=== PATIENT | female | born 1955 | race Hispanic/Latino ===

== ENCOUNTER 2017-08-01 09:49 | Emergency (ER) | payer OTHER ==
[2017-08-01] MEDS ORDERED: Ondansetron ODT 4 MG TAB ONE (10:08)
== END 2017-08-01 10:23 | disposition home or self-care (01) ==
LOC: BURERS 09:49
DX: A08.4 Viral intestinal infection, unspecified (principal); I10 Essential (primary) hypertension
CPT/HCPCS: 99283; Q0162

== ENCOUNTER 2019-04-04 16:49 | Emergency (ER) | payer MEDICARE, OTHER ==
[2019-04-04 17:18] LABS: #Eosinphils 0.1 thou/uL (0.0-0.7); #Lymphocytes 2.2 thou/uL (1.20-3.40); #Monocytes 0.3 thou/uL (0.11-0.59); #Neutrophils 3.6 thou/uL (1.40-6.50); %Basophils 0.7 % (0.0-1.0); %Eosinophils 1.4 % (0.0-10.0); %Lymphocytes 35.7 % (21.0-51.0); %Monocytes 4.4 % (0.0-10.0); %Neutrophils 57.8 % (42.0-75.0); Hemoglobin 13.8 g/dL (12.0-16.0); Mean Corpuscular Hemoglobin 29.2 pg (27.0-31.0); Mean Corpuscular Volume 88.5 fL (78.0-98.0); Mean Platelet Volume 8.1 fL (7.4-10.4); Platelet Count 209 thou/uL (130-400); RBC Distribution Width 10.9 % (11.5-14.5); Red Blood Cell (RBC) Count 4.73 mill/uL (4.20-5.40); White Blood Cell (WBC) Count 6.2 thou/uL (4.8-10.8)
[2019-04-04 17:30] LABS: ALT (SGPT) 23 U/L (8-55); AST (SGOT) 24 U/L (5-34); Albumin 4.5 g/dL (3.4-4.8); Alkaline Phosphatase 133 U/L (40-150); Anion Gap 17 mmol/L (10-20); BUN (Urea Nitrogen) 13 mg/dL (9.8-20.1); Bilirubin, Total 0.3 mg/dL (0.2-1.2); Calc. Creatinine Clearance 0 mL/min (70-130); Calcium 9.7 mg/dL (7.8-10.44); Carbon Dioxide 19 mmol/L (23-31); Chloride 106 mmol/L (98-107); Estimated GFR-MDRD 79; Glucose 119 mg/dL (80-115); Potassium 3.3 mmol/L (3.5-5.1); Protein, Total 7.5 g/dL (6.0-8.3); Sodium 139 mmol/L (136-145)
[2019-04-04] MEDS ORDERED: Potassium Chloride 20 MEQ TAB ONE (17:42)
--- NOTE | 2019-04-04 20:01 | RAD ---
PORTABLE CHEST: 04/04/19 An AP portable film at 1710 is presented with no prior films available for comparison. The heart is borderline in size, perhaps minimally enlarged. There is no vascular congestion, edema, or pleural effusion. The lungs are clear. The trachea is midline. IMPRESSION: Borderline heart size, otherwise no acute findings POS: HOME
== END 2019-04-04 17:57 | disposition home or self-care (01) ==
LOC: BURERS 16:49
DX: I10 Essential (primary) hypertension (principal); E78.5 Hyperlipidemia, unspecified; Z79.899 Other long term (current) drug therapy
CPT/HCPCS: 71045; 80053; 84484; 85025; 93005

== ENCOUNTER 2020-08-04 23:27 | Emergency (ER) | payer MEDICARE, OTHER ==
[2020-08-04] MEDS ORDERED: Acetaminophen 500 MG TAB ONE (23:44)
[2020-08-05] MEDS ORDERED: Dexamethasone 4 mg/ml Vial ONE (00:29)
--- NOTE | 2020-08-05 07:22 | RAD ---
PORTABLE CHEST: Date: 08/04/2020 An AP portable film at 2352 hours shows a normal sized heart and clear lungs. No lobar infiltrate or effusion seen. The only questionable area was in the periphery of the right upper lobe and this is at the junction of several overlapping bones, which I believe is most likely responsible for the findin g. One other equivocal area was in the left mid lung. Otherwise, the chest is unremarkable. IMPRESSION: Two equivocal patchy areas, one in the periphery of the right upper lobe and one in the left mid lung region that I cannot ensure are actual infiltrates versus confluence of markings. A follow-up film m ay be advised. POS: HOME
[2020-08-05 17:56] LABS: SARS-CoV-2 MS2 Positive; SARS-CoV-2 N Gene Positive; SARS-CoV-2 S Gene Positive; SARS-CoV-2 by NAA DETECTED (NotDetected); SARS-CoV-2 orf1ab Positive
== END 2020-08-05 00:43 | disposition home or self-care (01) ==
LOC: BURERS 23:27
DX: U07.1 COVID-19 (principal); E78.5 Hyperlipidemia, unspecified; E78.00 Pure hypercholesterolemia, unspecified; I10 Essential (primary) hypertension
CPT/HCPCS: 71045; 87804 ×2; 99284; U0003; 87635; J1100

== ENCOUNTER 2020-08-09 07:30 | Emergency (ER) | payer MEDICARE, OTHER ==
[2020-08-09 08:33] LABS: #Lymphocytes 1.1 thou/uL (1.20-3.40); #Monocytes 0.3 thou/uL (0.11-0.59); #Neutrophils 8.9 thou/uL (1.40-6.50); %Basophils 0.4 % (0.0-1.0); %Lymphocytes 10.9 % (21.0-51.0); %Monocytes 3.3 % (0.0-10.0); %Neutrophils 85.4 % (42.0-75.0); Hemoglobin 14.3 g/dL (12.0-16.0); Mean Corpuscular HGB CONC 31.9 g/dL (32.0-36.0); Mean Corpuscular Hemoglobin 28.3 pg (27.0-31.0); Mean Corpuscular Volume 88.6 fL (78.0-98.0); Mean Platelet Volume 7.8 fL (7.4-10.4); Platelet Count 231 thou/uL (130-400); RBC Distribution Width 11.7 % (11.5-14.5); Red Blood Cell (RBC) Count 5.06 mill/uL (4.20-5.40); White Blood Cell (WBC) Count 10.4 thou/uL (4.8-10.8)
[2020-08-09] MEDS ORDERED: Benzonatate 100 MG CAP ONE (08:41)
[2020-08-09 08:47] LABS: ALT (SGPT) 22 U/L (8-55); AST (SGOT) 28 U/L (5-34); Albumin 3.7 g/dL (3.4-4.8); Alkaline Phosphatase 96 U/L (40-110); Anion Gap 15 mmol/L (10-20); BUN (Urea Nitrogen) 15 mg/dL (9.8-20.1); Bilirubin, Total 0.4 mg/dL (0.2-1.2); Calc. Creatinine Clearance 0 mL/min (70-130); Calcium 8.7 mg/dL (7.8-10.44); Carbon Dioxide 23 mmol/L (23-31); Chloride 104 mmol/L (98-107); Estimated GFR-MDRD Greater than 90; Globulin 3.2 g/dL (2.4-3.5); Glucose 100 mg/dL (80-115); Potassium 3.2 mmol/L (3.5-5.1); Protein, Total 6.9 g/dL (6.0-8.3); Sodium 139 mmol/L (136-145)
[2020-08-09] MEDS ORDERED: Azithromycin 500 MG VIAL ONE (10:14)
[2020-08-09] MEDS ORDERED: cefTRIAXone\\ROCEPHIN 2 GM VIAL ONE (10:14)
[2020-08-09] MEDS ORDERED: Dexamethasone 4 mg/ml Vial ONE (10:15)
--- NOTE | 2020-08-09 17:00 | CT ---
CT OF THE CHEST WITHOUT CONTRAST: 08/09/[address] of the chest was done for evaluation of dyspnea. It was done without IV contrast by request . The major finding on this study is multiple patchy ground glass opacities scattered throughout all lo bes bilaterally. These findings are most suggestive of infection and should be COVID until proven ot herwise. There is no mediastinal mass or adenopathy. No coronary calcifications were seen. There are no effusions. Scans into the upper part of the abdomen showed no adrenal mass or other acute change. IMPRESSION: Extensive patchy bilateral ground glass infiltrates as described. Infection presumed, COVID most like ly given the current environment. Preliminary report called to Dr. Beck at 0842 on 08/09/20. POS: HOME
== END 2020-08-09 12:20 | disposition short-term general hospital (02) ==
LOC: BURERS 07:30
DX: U07.1 COVID-19 (principal); J12.89 Other viral pneumonia; E78.5 Hyperlipidemia, unspecified; E78.00 Pure hypercholesterolemia, unspecified; Z79.899 Other long term (current) drug therapy
CPT/HCPCS: 36415; 71250; 80053; 83605; 84484; 85025; 87040; 93005; 96365; 96375; J0456; J0696; J1100; J7620

== ENCOUNTER 2020-08-16 21:49 | Emergency (ER) | payer MEDICARE, OTHER | END 2020-08-16 22:15 | disposition home or self-care (01) | LOC: BURERS 21:49 | DX: R13.10 Dysphagia, unspecified (principal); T48.3X5A Adverse effect of antitussives, initial encounter; E78.5 Hyperlipidemia, unspecified; E78.00 Pure hypercholesterolemia, unspecified; Z79.899 Other long term (current) drug therapy | CPT/HCPCS: 99284 ==

== ENCOUNTER 2020-09-09 09:23 | Emergency (ER) | payer MEDICARE, OTHER ==
[2020-09-09] MEDS ORDERED: predniSONE 20 MG TAB ONE (10:06)
--- NOTE | 2020-09-09 10:21 | RAD ---
Chest AP view INDICATION: History of cough in a 65-year-old female COMPARISON: August 04, 2020 FINDINGS: Lungs: Very mild patchy groundglass peripheral airspace opacities are seen throughout both lungs, sl ightly more pronounced than on the prior exam. Cardiac silhouette: Mild cardiomegaly is stable. Pulmonary vasculature: Normal Pleural spaces: No pleural effusion or pneumothorax is demonstrated. Upper abdomen: No abnormality seen. Osseous structures: No acute osseous abnormality. Additional findings: None. IMPRESSION: 1. Findings suspicious for bilateral atypical pneumonia. Recommend correlation with Covid testing. 2. Stable mild cardiomegaly without evidence of cardiac decompensation.
[2020-09-09 10:40] LABS: Anion Gap 16 mmol/L (10-20); BUN (Urea Nitrogen) 12 mg/dL (9.8-20.1); Calc. Creatinine Clearance 0 mL/min (70-130); Carbon Dioxide 21 mmol/L (23-31); Chloride 107 mmol/L (98-107); Glucose 103 mg/dL (80-115); Potassium 3.8 mmol/L (3.5-5.1); Sodium 140 mmol/L (136-145)
[2020-09-10 01:06] LABS: SARS-CoV-2 MS2 Positive; SARS-CoV-2 N Gene Positive; SARS-CoV-2 S Gene Positive; SARS-CoV-2 by NAA DETECTED (NotDetected); SARS-CoV-2 orf1ab Positive
== END 2020-09-09 11:00 | disposition home or self-care (01) ==
LOC: BURERS 09:23
DX: U07.1 COVID-19 (principal); J12.89 Other viral pneumonia; R19.7 Diarrhea, unspecified; Z79.899 Other long term (current) drug therapy; E78.5 Hyperlipidemia, unspecified; E78.00 Pure hypercholesterolemia, unspecified
CPT/HCPCS: 71045; 80048; 87804 ×2; 99284; U0003; 36415; 87635; J7512

== ENCOUNTER 2020-09-11 07:23 | Emergency (ER) | payer MEDICARE, OTHER ==
[2020-09-11] MEDS ORDERED: hydrOXYzine 25 MG TAB ONE (08:05)
[2020-09-11] MEDS ORDERED: Famotidine 20 MG TAB ONE (08:05)
== END 2020-09-11 09:01 | disposition home or self-care (01) ==
LOC: BURERS 07:23
DX: U07.1 COVID-19 (principal); R09.89 Other specified symptoms and signs involving the circulatory and respiratory systems; F41.9 Anxiety disorder, unspecified; E78.00 Pure hypercholesterolemia, unspecified; E78.5 Hyperlipidemia, unspecified; Z79.899 Other long term (current) drug therapy
CPT/HCPCS: 99283

== ENCOUNTER 2020-09-24 19:30 | Emergency (ER) | payer MEDICARE, OTHER ==
[2020-09-24] MEDS ORDERED: predniSONE 20 MG TAB ONE (20:09)
== END 2020-09-24 20:20 | disposition home or self-care (01) ==
LOC: BURERS 19:30
DX: U07.1 COVID-19 (principal); F41.9 Anxiety disorder, unspecified; E78.5 Hyperlipidemia, unspecified; E78.00 Pure hypercholesterolemia, unspecified; Z79.899 Other long term (current) drug therapy
CPT/HCPCS: 99284; J7512

== ENCOUNTER → 2021-09-17 | Emergency (ER) | payer MEDICARE, OTHER | LOC: BURERS 10:27 | DX: J06.9 Acute upper respiratory infection, unspecified (principal); Z86.16 Personal history of COVID-19; E78.5 Hyperlipidemia, unspecified; E78.00 Pure hypercholesterolemia, unspecified | CPT/HCPCS: 87804; 99283 ==

== ENCOUNTER 2021-09-22 02:30 | Emergency (ER) | payer MEDICARE, OTHER | END 2021-09-22 03:30 | disposition home or self-care (01) | LOC: BURERS 02:30 | DX: J20.9 Acute bronchitis, unspecified (principal); E78.5 Hyperlipidemia, unspecified; E78.00 Pure hypercholesterolemia, unspecified; Z86.16 Personal history of COVID-19; Z79.52 Long term (current) use of systemic steroids; Z79.899 Other long term (current) drug therapy | CPT/HCPCS: 99283 ==

== ENCOUNTER 2021-11-18 12:27 | Emergency (ER) | payer MEDICARE, OTHER ==
[2021-11-18 13:34] LABS: Bilirubin Negative (Negative); Blood, Urine Negative (Negative); Clarity Clear (Clear); Glucose, Urine (Dipstick) Negative (Negative); Ketone, Urine Trace mg/dL (Negative); Leukocyte Negative (Negative); Nitrite Negative (Negative); Protein, Urine (Dipstick) Negative (Neg-Trace); Urobilinogen 0.2 mg/dL (Less than 2)
[2021-11-18 13:55] LABS: #Basophils 0.1 thou/uL (0.0-0.2); #Eosinphils 0.1 thou/uL (0.0-0.7); #Lymphocytes 1.9 thou/uL (1.20-3.40); #Monocytes 0.6 thou/uL (0.11-0.59); #Neutrophils 8.5 thou/uL (1.40-6.50); %Basophils 0.7 % (0.0-1.0); %Eosinophils 0.9 % (0.0-10.0); %Monocytes 5.7 % (0.0-10.0); %Neutrophils 75.6 % (42.0-75.0); Hemoglobin 13.3 g/dL (12.0-16.0); Mean Corpuscular HGB CONC 32.5 g/dL (32.0-36.0); Mean Corpuscular Hemoglobin 29.2 pg (27.0-31.0); Mean Corpuscular Volume 89.8 fL (78.0-98.0); Mean Platelet Volume 9.2 fL (7.4-10.4); Platelet Count 228 thou/uL (130-400); RBC Distribution Width 12.8 % (11.5-14.5); Red Blood Cell (RBC) Count 4.57 mill/uL (4.20-5.40); White Blood Cell (WBC) Count 11.2 thou/uL (4.8-10.8)
[2021-11-18 14:07] LABS: ALT (SGPT) 19 U/L (8-55); AST (SGOT) 19 U/L (5-34); Albumin 3.8 g/dL (3.4-4.8); Alkaline Phosphatase 120 U/L (40-110); Anion Gap 12 mmol/L (10-20); BUN (Urea Nitrogen) 26 mg/dL (9.8-20.1); Bilirubin, Total 0.3 mg/dL (0.2-1.2); Calc. Creatinine Clearance 0 mL/min (70-130); Calcium 8.8 mg/dL (7.8-10.44); Carbon Dioxide 24 mmol/L (23-31); Chloride 109 mmol/L (98-107); Globulin 2.8 g/dL (2.4-3.5); Glucose 93 mg/dL (80-115); Potassium 3.9 mmol/L (3.5-5.1); Protein, Total 6.6 g/dL (5.8-8.1); Sodium 141 mmol/L (136-145)
== END 2021-11-18 14:26 | disposition home or self-care (01) ==
LOC: BURERS 12:27
DX: B34.9 Viral infection, unspecified (principal); E78.5 Hyperlipidemia, unspecified; E78.00 Pure hypercholesterolemia, unspecified; K21.9 Gastro-esophageal reflux disease without esophagitis; Z86.16 Personal history of COVID-19
CPT/HCPCS: 36415; 80053; 81003; 84484; 85025; 99284

== ENCOUNTER 2022-01-08 03:00 | Emergency (ER) | payer MEDICARE, OTHER ==
[2022-01-08] MEDS ORDERED: Dexamethasone 10 MG/ML VIAL ONE (03:26)
[2022-01-08] MEDS ORDERED: Ibuprofen 200 MG TAB ONE (03:26)
[2022-01-08] MEDS ORDERED: Acetaminophen 325 MG TAB ONE (03:30)
== END 2022-01-08 03:40 | disposition home or self-care (01) ==
LOC: BURERS 03:00
DX: M54.42 Lumbago with sciatica, left side (principal); K21.9 Gastro-esophageal reflux disease without esophagitis; E78.5 Hyperlipidemia, unspecified; E78.00 Pure hypercholesterolemia, unspecified; Z86.16 Personal history of COVID-19; Z79.899 Other long term (current) drug therapy
CPT/HCPCS: 96372; 99283; J1100

== ENCOUNTER 2022-01-16 18:50 | Emergency (ER) | payer MEDICARE, OTHER ==
[2022-01-16] MEDS ORDERED: predniSONE 20 MG TAB ONE (19:43)
== END 2022-01-16 20:00 | disposition home or self-care (01) ==
LOC: BURERS 18:50
DX: J68.0 Bronchitis and pneumonitis due to chemicals, gases, fumes and vapors (principal); E78.5 Hyperlipidemia, unspecified; E78.00 Pure hypercholesterolemia, unspecified; K21.9 Gastro-esophageal reflux disease without esophagitis
CPT/HCPCS: 99283; J7512

== ENCOUNTER 2022-01-28 11:03 | Outpatient (CLI) | payer MEDICARE, OTHER | END 2022-01-28 11:04 | disposition home or self-care (01) | LOC: BURRAD 11:03 | PROVIDERS: ATTEND Family Medicine | DX: M25.551 Pain in right hip (principal); R05.3 Chronic cough | CPT/HCPCS: 71046 ==

== ENCOUNTER 2022-02-01 08:00 | Emergency (ER) | payer MEDICARE, OTHER | END 2022-02-01 08:26 | disposition home or self-care (01) | LOC: BURERS 08:00 | DX: M25.551 Pain in right hip (principal); I10 Essential (primary) hypertension; E78.5 Hyperlipidemia, unspecified; E78.00 Pure hypercholesterolemia, unspecified; K21.9 Gastro-esophageal reflux disease without esophagitis; Z79.899 Other long term (current) drug therapy | CPT/HCPCS: 99283 ==

== ENCOUNTER 2022-05-10 16:11 | Outpatient (CLI) | payer MEDICARE, OTHER ==
[2022-05-10 16:38] LABS: Bilirubin Negative (Negative); Blood, Urine Negative (Negative); Clarity Clear (Clear); Glucose, Urine (Dipstick) Negative (Negative); Hemoglobin 13.9 g/dL (12.0-16.0); Ketone, Urine Negative (Negative); Leukocyte Negative (Negative); Mean Corpuscular HGB CONC 34.5 g/dL (32.0-36.0); Mean Corpuscular Hemoglobin 30.2 pg (27.0-31.0); Mean Corpuscular Volume 87.6 fL (78.0-98.0); Nitrite Negative (Negative); Platelet Count 288 thou/uL (130-400); Protein, Urine (Dipstick) Negative (Neg-Trace); RBC Distribution Width 12.1 % (11.5-14.5); Urobilinogen 0.2 mg/dL (Less than 2); White Blood Cell (WBC) Count 13.1 thou/uL (4.8-10.8); pH, Urine 6.5 (5.0-9.0)
[2022-05-10 16:43] LABS: Urine Culture Reflex No No
[2022-05-10 16:49] LABS: Prothrombin Time 13.1 sec (12.0-14.7)
[2022-05-10 16:50] LABS: PTT 29.2 sec (22.9-36.1)
[2022-05-10 16:58] LABS: ALT (SGPT) 17 U/L (8-55); AST (SGOT) 14 U/L (5-34); Albumin 4.2 g/dL (3.4-4.8); Alkaline Phosphatase 107 U/L (40-110); Anion Gap 13 mmol/L (10-20); BUN (Urea Nitrogen) 9 mg/dL (9.8-20.1); Bilirubin, Total 0.3 mg/dL (0.2-1.2); Calc. Creatinine Clearance 0 mL/min (70-130); Calcium 9.6 mg/dL (7.8-10.44); Carbon Dioxide 24 mmol/L (23-31); Chloride 107 mmol/L (98-107); Estimated GFR 95; Globulin 3.4 g/dL (2.4-3.5); Glucose 80 mg/dL (80-115); Potassium 3.9 mmol/L (3.5-5.1); Protein, Total 7.6 g/dL (5.8-8.1); Sodium 140 mmol/L (136-145)
[2022-05-10 17:19] LABS: Bacteria/HPF Rare-Few HPF (None Seen); RBC/HPF None Seen HPF (0-3); Squamous Epithelial 0-3 HPF (0-3); WBC/HPF 0-3 HPF (0-3); Yeast-Budding Rare HPF (None Seen)
[2022-05-11 11:50] LABS: Hemoglobin A1c 5.1 % (4.0-6.0)
== END 2022-05-10 16:12 | disposition home or self-care (01) ==
LOC: BURRAD 16:11
PROVIDERS: ATTEND Orthopaedic Surgery Adult Reconstructive Orthopaedic Surgery
DX: Z01.818 Encounter for other preprocedural examination (principal); M16.11 Unilateral primary osteoarthritis, right hip; Z79.899 Other long term (current) drug therapy
CPT/HCPCS: 71046; 80053; 81001; 82306; 83036; 85027; 85610; 85730

== ENCOUNTER 2022-05-15 14:52 | Emergency (ER) | payer MEDICARE, OTHER | END 2022-05-15 15:47 | disposition home or self-care (01) | LOC: BURERS 14:52 | DX: K52.9 Noninfective gastroenteritis and colitis, unspecified (principal); E78.5 Hyperlipidemia, unspecified; I10 Essential (primary) hypertension; K21.9 Gastro-esophageal reflux disease without esophagitis; Z79.899 Other long term (current) drug therapy | CPT/HCPCS: 99283 ==

== ENCOUNTER 2022-08-31 05:05 | Emergency (ER) | payer MEDICARE, OTHER | END 2022-08-31 06:44 | disposition home or self-care (01) | LOC: BURERS 05:05 | DX: J20.9 Acute bronchitis, unspecified (principal); K21.9 Gastro-esophageal reflux disease without esophagitis; E78.5 Hyperlipidemia, unspecified; I10 Essential (primary) hypertension | CPT/HCPCS: 71046; 87081; 87430; 87804; 87807 ==

== ENCOUNTER 2022-09-13 13:07 | Emergency (ER) | payer MEDICARE, OTHER ==
[2022-09-13] MEDS ORDERED: Acetaminophen 325 MG TAB ONE (13:21)
== END 2022-09-13 14:02 | disposition home or self-care (01) ==
LOC: BURERS 13:07
DX: M16.12 Unilateral primary osteoarthritis, left hip (principal); E78.5 Hyperlipidemia, unspecified; I10 Essential (primary) hypertension

== ENCOUNTER 2022-12-13 13:50 | Emergency (ER) | payer MEDICARE, OTHER ==
[2022-12-13] MEDS ORDERED: Diazepam 5 MG TAB ONE (14:23)
[2022-12-13] MEDS ORDERED: Ketorolac Tromethamine 30 MG/ML VIAL ONE (14:23)
== END 2022-12-13 15:38 | disposition home or self-care (01) ==
LOC: BURERS 13:50
DX: M43.6 Torticollis (principal); I10 Essential (primary) hypertension; E78.5 Hyperlipidemia, unspecified; K21.9 Gastro-esophageal reflux disease without esophagitis; Z79.82 Long term (current) use of aspirin
CPT/HCPCS: 96372; 99283; J1885

== ENCOUNTER 2023-04-19 07:54 | Emergency (ER) | payer MEDICARE, OTHER ==
[2023-04-19 08:29] LABS: Anion Gap 16 mmol/L (10-20); BUN (Urea Nitrogen) 9 mg/dL (9.8-20.1); Calc. Creatinine Clearance 0 mL/min (70-130); Calcium 9.4 mg/dL (7.8-10.44); Carbon Dioxide 22 mmol/L (23-31); Chloride 106 mmol/L (98-107); Estimated GFR 95; Glucose 112 mg/dL (80-115); Potassium 3.6 mmol/L (3.5-5.1); Sodium 140 mmol/L (136-145)
[2023-04-19] MEDS ORDERED: Iopamidol 370 76% 100 ML VIAL ONE (09:47)
== END 2023-04-19 11:21 | disposition home or self-care (01) ==
LOC: BURERS 07:54
DX: R06.02 Shortness of breath (principal); I10 Essential (primary) hypertension; E78.00 Pure hypercholesterolemia, unspecified; K21.9 Gastro-esophageal reflux disease without esophagitis; Z79.82 Long term (current) use of aspirin; Z79.899 Other long term (current) drug therapy
CPT/HCPCS: 71275; 80048; Q9967

== ENCOUNTER 2025-08-18 07:43 | Emergency (ER) | payer MEDICARE, OTHER ==
[2025-08-18 08:14] LABS: #Basophils 0.1 thou/uL (0.0-0.2); #Eosinophils 0.1 thou/uL (0.0-0.7); #Lymphocytes 2.3 thou/uL (1.20-3.40); #Monocytes 0.4 thou/uL (0.11-0.59); #Neutrophils 5.6 thou/uL (1.40-6.50); %Basophils 0.8 % (0.0-1.0); %Eosinophils 1.6 % (0.0-10.0); %Lymphocytes 27.1 % (21.0-51.0); %Monocytes 4.6 % (0.0-10.0); %Neutrophils 65.9 % (42.0-75.0); Hematocrit 45.6 % (36.0-47.0); Hemoglobin 14.7 g/dL (12.0-16.0); Mean Corpuscular Hemoglobin 27.5 pg (27.0-31.0); Mean Corpuscular Volume 85.3 fl (78.0-98.0); Platelet Count 260 10x3/uL (130-400); Red Blood Cell (RBC) Count 5.35 mill/uL (4.20-5.40); White Blood Cell (WBC) Count 8.4 10x3/uL (4.8-10.8)
[2025-08-18 08:21] LABS: INR-International Normal Ratio 1.1; Prothrombin Time 14.0 sec (12.0-14.7)
[2025-08-18 08:22] LABS: PTT 32.1 sec (22.9-36.1)
[2025-08-18 08:31] LABS: ALT (SGPT) 33 U/L (Less than 34); AST (SGOT) 40 U/L (11-34); Albumin 4.0 g/dL (3.1-4.5); Alkaline Phosphatase 168 U/L (40-110); Anion Gap 18 mmol/L (10-20); BUN (Urea Nitrogen) 15 mg/dL (9.8-20.1); Bilirubin, Total 0.3 mg/dL (0.3-1.2); Calc. Creatinine Clearance 0 mL/min (70-130); Calcium 8.8 mg/dL (7.8-10.44); Carbon Dioxide 21 mmol/L (23-31); Chloride 109 mmol/L (98-107); Globulin 3.2 g/dL (2.4-3.5); Glucose 118 mg/dL (83-110); Potassium 3.7 mmol/L (3.5-5.1); Sodium 144 mmol/L (136-145)
[2025-08-18 08:32] LABS: Troponin I 0.012 ng/mL (< 0.028)
[2025-08-18] MEDS ORDERED: Ondansetron PF 4 MG/2 ML Vial ONE (08:35)
[2025-08-18] MEDS ORDERED: Aspirin 325 MG TAB ONE (09:10)
== END 2025-08-18 16:50 | disposition short-term general hospital (02) ==
LOC: SUATTDRO 07:43 → BURERS 07:43
PROVIDERS: ADMIT Family Medicine; ATTEND Family Medicine
DX: G45.9 Transient cerebral ischemic attack, unspecified (principal); E78.5 Hyperlipidemia, unspecified; I10 Essential (primary) hypertension; Z79.82 Long term (current) use of aspirin; Z79.899 Other long term (current) drug therapy
CPT/HCPCS: 70450; 80053; 83605; 84484; 85025; 85610; 85730; 93005; J2405

== ENCOUNTER 2025-09-05 15:01 | Emergency (ER) | payer MEDICARE, OTHER ==
[2025-09-05 15:22] LABS: #Basophils 0.1 thou/uL (0.0-0.2); #Eosinophils 0.1 thou/uL (0.0-0.7); #Lymphocytes 1.9 thou/uL (1.20-3.40); #Monocytes 0.4 thou/uL (0.11-0.59); #Neutrophils 5.7 thou/uL (1.40-6.50); %Basophils 1.0 % (0.0-1.0); %Eosinophils 1.2 % (0.0-10.0); %Lymphocytes 23.5 % (21.0-51.0); %Monocytes 4.7 % (0.0-10.0); %Neutrophils 69.6 % (42.0-75.0); Hematocrit 45.9 % (36.0-47.0); Hemoglobin 14.9 g/dL (12.0-16.0); Mean Corpuscular Hemoglobin 27.5 pg (27.0-31.0); Mean Corpuscular Volume 84.6 fl (78.0-98.0); Platelet Count 308 10x3/uL (130-400); Red Blood Cell (RBC) Count 5.42 mill/uL (4.20-5.40); White Blood Cell (WBC) Count 8.3 10x3/uL (4.8-10.8)
[2025-09-05] MEDS ORDERED: Aspirin 81 mg Enteric Coated Tablet ONE (15:23)
[2025-09-05 15:29] LABS: INR-International Normal Ratio 1.1; Prothrombin Time 14.3 sec (12.0-14.7)
[2025-09-05 15:30] LABS: PTT 33.0 sec (22.9-36.1)
[2025-09-05 15:35] LABS: ALT (SGPT) 26 U/L (Less than 34); AST (SGOT) 41 U/L (11-34); Albumin 4.0 g/dL (3.1-4.5); Alkaline Phosphatase 183 U/L (40-110); Anion Gap 18 mmol/L (10-20); BUN (Urea Nitrogen) 14 mg/dL (9.8-20.1); Bilirubin, Total 0.4 mg/dL (0.3-1.2); Calc. Creatinine Clearance 0 mL/min (70-130); Calcium 9.7 mg/dL (7.8-10.44); Carbon Dioxide 20 mmol/L (23-31); Chloride 106 mmol/L (98-107); Globulin 4.0 g/dL (2.4-3.5); Glucose 126 mg/dL (83-110); Potassium 4.0 mmol/L (3.5-5.1); Sodium 140 mmol/L (136-145)
[2025-09-05 15:59] LABS: Glucose, Urine (Dipstick) Negative (Negative); Leukocyte Trace (Negative); Protein, Urine (Dipstick) 30 mg/dL (Neg-Trace); Specific Gravity, Urine 1.015 (1.005-1.030)
[2025-09-05 16:02] LABS: RBC/HPF None Seen HPF (0-3)
[2025-09-05 16:03] LABS: Bacteria/HPF 2+ HPF (None Seen); CAUTI Indications for Culture Dysuria,urgency,freq; Mucous/LPF 4+ LPF (<2+); WBC/HPF 0-3 HPF (0-3); Yeast-Budding Rare HPF (None Seen); Yeast-Hyphae Rare HPF (None Seen)
[2025-09-05 16:04] LABS: Urine Culture Reflex No No
[2025-09-05 17:00] LABS: Troponin I 0.017 ng/mL (< 0.028)
== END 2025-09-05 16:42 | disposition home or self-care (01) ==
LOC: BURERS 15:01
DX: R51.9 Headache, unspecified (principal); K21.9 Gastro-esophageal reflux disease without esophagitis; E78.5 Hyperlipidemia, unspecified; I10 Essential (primary) hypertension; R29.700 NIHSS score 0; Z79.82 Long term (current) use of aspirin; Z79.899 Other long term (current) drug therapy
CPT/HCPCS: 70450; 80053; 81001; 84484; 85025; 85610; 85730; 93005; 94760